=== PATIENT | male | born 1965 | race Caucasian/White ===

== ENCOUNTER 2017-08-09 10:03 | Day surgery (SDC) | payer OTHER ==
[~2017-08-09 10:03] MED LIST: LIDOCAINE 2% (SDV) 5 ML INJ
[2017-08-09] MEDS ORDERED: CEFAZOLIN 1 GM/50 ML (PMX) 50 ML IVPB (11:00)
[2017-08-09] MEDS ORDERED: SOD CHLORIDE 0.9% 1,000 ML IV (11:00)
[2017-08-09 11:07] LABS: ADD MAN DIFF? NO
[2017-08-09 11:12] LABS: BASOPHIL # 0.1 10^3/ul (0.0-0.1); BASOPHILS % 0.5 % (0.0-2.0); EOSINOPHILS # 0.1 10^3/ul (0.0-0.5); EOSINOPHILS % 0.7 % (0.0-7.0); HEMATOCRIT 48.4 % (42.0-52.0); HEMOGLOBIN 17.2 g/dl (14.0-18.0); LYMPHOCYTES # 2.4 10^3/ul (0.8-2.9); LYMPHOCYTES % 25.5 % (15.0-51.0); MEAN CORPUSCULAR HEMOGLOBIN 30.9 pg (29.0-33.0); MEAN CORPUSCULAR HGB CONC 35.5 g/dl (32.0-37.0); MEAN CORPUSCULAR VOLUME 86.9 fl (82.0-101.0); MEAN PLATELET VOLUME 10.1 fl (7.4-10.4); MONOCYTE # 0.6 10^3/ul (0.3-0.9); MONOCYTES % 6.6 % (0.0-11.0); NEUTROPHIL # 6.3 10^3/ul (1.6-7.5); NEUTROPHILS % 66.6 % (39.0-77.0); PLATELET COUNT 343 10^3/UL (140-415); RED BLOOD COUNT 5.57 10^6/ul (4.70-6.10); RED CELL DISTRIBUTION WIDTH 12.3 % (11.5-14.5)
[2017-08-09 11:12] LABS: WHITE BLOOD COUNT 9.4 10^3/ul (4.8-10.8)
[2017-08-09 11:32] LABS: ALANINE AMINOTRANSFERASE 63 IU/L (13-69); ALBUMIN 4.9 g/dl (3.3-4.9); ALBUMIN/GLOBULIN RATIO 1.28; ALKALINE PHOSPHATASE 98 IU/L (42-121); ANION GAP 16 (8-16); ASPARTATE AMINO TRANSFERASE 38 IU/L (15-46); BILIRUBIN,INDIRECT 0.9 mg/dl (0-1.1); BILIRUBIN,TOTAL 0.9 mg/dl (0.2-1.3); CARBON DIOXIDE 25 mmol/L (21-31); CHLORIDE 103 mmol/L (97-110); GLUCOSE 119 mg/dl (70-220); TOTAL PROTEIN 8.7 g/dl (6.1-8.1)
[2017-08-09 11:38] LABS: BLOOD UREA NITROGEN 15 mg/dl (7-20); CALCIUM 10.1 mg/dl (8.4-10.2); CREATININE 1.34 mg/dl (0.61-1.24); POTASSIUM 3.6 mmol/L (3.5-5.1); SODIUM 140 mmol/L (135-144)
[2017-08-09] MEDS ORDERED: POLYMYXIN/BACITRACIN 1L IRRIG (11:41)
[2017-08-09] MEDS ORDERED: BUPIVACAINE 0.25%/EPI (SDV) 30 ML INJ (11:41)
[2017-08-09] MEDS ORDERED: MIDAZOLAM 1 MG/ML 2 ML INJ (12:08)
[2017-08-09] MEDS ORDERED: PROPOFOL 20 ML (12:08)
[2017-08-09] MEDS ORDERED: FENTAnyl 50 MCG/ML VIAL (12:08)
[2017-08-09] MEDS ORDERED: ONDANSETRON 4 MG INJ ×2 (12:12→12:31)
[2017-08-09] MEDS ORDERED: DEXAMETHASONE 4 MG/ML 1 ML INJ ×2 (12:12→12:31)
[2017-08-09] MEDS ORDERED: CEFAZOLIN 1 GM INJ (12:12)
[2017-08-09] MEDS ORDERED: ROCURONIUM 50 MG INJ (12:12)
[2017-08-09 12:17] LABS: PROTIME 12.2 Sec (11.9-14.9)
[2017-08-09 12:18] LABS: PARTIAL THROMBOPLASTIN TIME 25.6 Sec (25.0-35.0)
[2017-08-09] MEDS ORDERED: FAMOTIDINE 20 MG INJ (12:31)
[2017-08-09] MEDS ORDERED: ROPIVACAINE 0.2% 20 ML VIAL (12:33)
[2017-08-09] MEDS ORDERED: PHENYLephrine (100 MCG/ML) 5ML SYG (12:33)
[2017-08-09] MEDS ORDERED: EPHEDrine 50 MG INJ (12:34)
[2017-08-09] MEDS: BUPIVACAINE 0.5% (SDV) 30 ML INJ (12:45)
[2017-08-09] MEDS ORDERED: KETOROLAC 30 MG INJ (13:04)
[2017-08-09] MEDS ORDERED: SUGAMMADEX SODIUM 200 MG/2 ML VIAL IV (13:08)
[2017-08-09] MEDS ORDERED: HYDROCODONE/APAP (5/325) TAB PO (13:30)
[2017-08-09] MEDS: ONDANSETRON 4 MG INJ IV (13:57)
[2017-08-09] MEDS: HYDROmorphONE 1 MG/5 ML IV SYRINGE IV (13:57)
[2017-08-09] MEDS ORDERED: OXYCODONE/ACETAMINOPHEN (5/325) TAB PO (14:00)
[2017-08-09] MEDS ORDERED: HYDROmorphONE 1 MG/5 ML IV SYRINGE IV (14:00)
[2017-08-09] MEDS ORDERED: FENTAnyl 50 MCG/ML VIAL IV ×2 (14:00)
[2017-08-09] MEDS: OXYCODONE/ACETAMINOPHEN (5/325) TAB PO (14:22)
== END 2017-08-09 16:31 | disposition home or self-care (01) ==
LOC: SDS 10:03
DX: K42.0 Umbilical hernia with obstruction, without gangrene (principal); I10 Essential (primary) hypertension
CPT/HCPCS: 49587; 80053; 85025; 85610; 85730; 93005